=== PATIENT | male | born 1970 | race Caucasian/White ===

== ENCOUNTER 2017-02-14 12:58 | Inpatient (IN) | payer OTHER ==
[~2017-02-14] VITALS: Ht 180.3 cm; Wt 141.5 kg
[~2017-02-14 12:58] MED LIST: AVELOX ABC PAC400 MG; MEDROL4 MG; PROTONIX40 M1 PO; PROVENTIL3 ML/2.5 M IH; SYMBICORT 16010.2 GM IH; ZANTAC150 M3 PO
[2017-02-17] MEDS ORDERED: BACTRIM DS TAB1 EACH PO (12:07)
[2017-02-17] MEDS ORDERED: FLAGYL500MG PO (12:07)
== END 2017-02-17 14:07 | disposition home or self-care (01) | DRG 392 ==
LOC: ER 12:58 → MEDI 19:42
PROC: BW21Y0Z Computerized Tomography (CT Scan) of Abdomen and Pelvis using Other Contrast, Unenhanced and Enhanced (ICD-10-PCS; principal; 2017-02-14)
DX: K57.32 Diverticulitis of large intestine without perforation or abscess without bleeding (principal)

== ENCOUNTER 2018-06-06 07:06 | Emergency (ER) | payer OTHER ==
[~2018-06-06] VITALS: Ht 177.8 cm; Wt 154.2 kg
[~2018-06-06 07:06] MED LIST changes: +BACTRIM DS TAB1 EACH PO; +FLAGYL500MG PO
[2018-06-06] MEDS ORDERED: AZITHROMYCIN600 MG (07:15)
== END 2018-06-06 17:55 | disposition home or self-care (01) ==
LOC: ER 07:06
DX: J45.998 Other asthma (principal)

== ENCOUNTER 2019-03-16 13:46 | Emergency (ER) | payer OTHER ==
[~2019-03-16] VITALS: Ht 180.3 cm; Wt 149.7 kg
[~2019-03-16 13:46] MED LIST changes: +AZITHROMYCIN600 MG
== END 2019-03-16 20:41 | disposition home or self-care (01) ==
LOC: ER 13:46
DX: J45.998 Other asthma (principal)

== ENCOUNTER 2019-07-21 16:32 | Emergency (ER) | payer OTHER ==
[~2019-07-21] VITALS: Ht 180.3 cm; Wt 149.2 kg
== END 2019-07-21 22:18 | disposition home or self-care (01) ==
LOC: ER 16:32
DX: S80.02XA Contusion of left knee, initial encounter (principal); W18.39XA Other fall on same level, initial encounter; Y93.89 Activity, other specified; Y92.098 Other place in other non-institutional residence as the place of occurrence of the external cause; Y99.8 Other external cause status

== ENCOUNTER 2019-07-22 14:56 | Outpatient (CLI) | payer OTHER | END 2019-07-22 15:04 | disposition home or self-care (01) | LOC: LAB 14:56 | PROVIDERS: ATTEND Orthopaedic Surgery | DX: M25.48 Effusion, other site (principal) ==

== ENCOUNTER 2020-01-16 18:07 | Emergency (ER) | payer OTHER ==
[~2020-01-16] VITALS: Ht 177.8 cm; Wt 147.4 kg
== END 2020-01-16 20:41 | disposition home or self-care (01) ==
LOC: ER 18:07
DX: M54.5 Low back pain (principal)

== ENCOUNTER 2020-01-25 13:00 | Outpatient (CLI) | payer OTHER | END 2020-01-25 15:00 | disposition home or self-care (01) | LOC: LAB 13:00 | DX: Z00.00 Encounter for general adult medical examination without abnormal findings (principal); S22.009A Unspecified fracture of unspecified thoracic vertebra, initial encounter for closed fracture ==

== ENCOUNTER 2020-01-26 10:23 | Outpatient (CLI) | payer OTHER | END 2020-01-26 10:43 | disposition home or self-care (01) | LOC: TOM 10:23 | PROVIDERS: ATTEND Physical Medicine & Rehabilitation Spinal Cord Injury Medicine | DX: S22.008A Other fracture of unspecified thoracic vertebra, initial encounter for closed fracture (principal) ==

== ENCOUNTER 2025-01-19 17:15 | Emergency (ER) | payer OTHER ==
[~2025-01-19] VITALS: Ht 180.3 cm; Wt 157.9 kg
[2025-01-19] MEDS ORDERED: METHYLPREDNISOLONE SOD SUCC 125 MG VIAL IV STA (19:37)
[2025-01-19] MEDS ORDERED: 0.9 % SODIUM CHLORIDE 500 ML IV STA (19:38)
[2025-01-19] MEDS ORDERED: LEVALBUTEROL HCL 1.25 MG/3 ML SOLUTION IH SCH (19:45)
[2025-01-19] MEDS ORDERED: MAGNESIUM SULFATE IN WATER 2 GM/50 ML PIGGYBAG IV SCH (19:45)
[2025-01-19] MEDS ORDERED: IPRATROPIUM BROMIDE 0.5 MG/2.5 ML AMPUL.NEB IH SCH (19:45)
[2025-01-19] MEDS ORDERED: METHYLPREDNISOLONE SOD SUCC 125 MG VIAL ONE (20:14)
[2025-01-19 20:58] LABS: BASO % 0.4 % (0.1-1.2); EOS # 0.01 (0.04-0.54); EOS % 0.1 % (0.7-7.0); LYMPH # 0.90 (1.18-3.74); LYMPH % 12.2 % (19.3-53.1); MEAN PLATELET VOLUME 9.80 fl (9.4-12.4); MONO # 0.74 (0.24-0.82); MONO % 10.0 % (4.7-12.5); NEUT # 5.69 (1.56-6.13); NEUT % 77.0 % (34.0-71.1); RED CELL DISTRIBUTION WIDTH 13.2 % (11.6-14.4)
[2025-01-19 21:33] LABS: ALT/SGPT 61.0 U/L (12-78); AST/SGOT 20.0 U/L (15-37); BILIRUBIN TOTAL 0.54 mg/dL (0.3-1.2); BUN CREA RATIO 27.0 (7.0-25.0); CREATININE SERUM 0.74 mg/dL (0.70-1.30); GFR 110.22; GLOBULINA 3.5 G/DL (2.4-3.5); GLUCOSE FASTING 104.0 mg/dL (65-100); OSMOLALITY SERUM 288.0 MOSM/KG (275-295)
[2025-01-19] MEDS ORDERED: LEVALBUTEROL HCL 0.63 MG/3 ML SOLUTION IH ONE (21:52)
[2025-01-19] MEDS ORDERED: IPRATROPIUM BROMIDE 0.5 MG/2.5 ML AMPUL.NEB IH ONE (21:52)
[2025-01-20] MEDS ORDERED: LEVALBUTEROL HCL 1.25 MG/3 ML SOLUTION IH ONE (00:49)
[2025-01-20] MEDS ORDERED: LEVALBUTEROL HCL 1.25 MG/3 ML SOLUTION IH SCH (01:00)
[2025-01-20] MEDS ORDERED: ZYNCOF 20-400120 ML PO (02:34)
[2025-01-20] MEDS ORDERED: ALBUTEROL2.5 MG/3 M IH (02:34)
[2025-01-20] MEDS ORDERED: TRELEGY ELLIPT1 EACH IH (02:34)
== END 2025-01-20 02:47 ==
LOC: ER 17:15
PROVIDERS: General Practice
DX: J45.41 Moderate persistent asthma with (acute) exacerbation (principal); Z88.0 Allergy status to penicillin; Z88.8 Allergy status to other drugs, medicaments and biological substances